=== PATIENT | female | born 1995 | race Caucasian/White ===

== ENCOUNTER 2023-01-05 14:26 | Inpatient (IN) | payer BC ==
[2023-01-05] MEDS ORDERED: hydrALAZINE 20 MG/ML VIAL SLOW IVP PRN (15:23)
[2023-01-05] MEDS ORDERED: Diphenoxylate HCl/Atropine Tablet PO PRN (15:23)
[2023-01-05] MEDS ORDERED: Carboprost 250 MCG/ML AMP IM PRN (15:23)
[2023-01-05] MEDS ORDERED: Docusate 100 MG CAP PO PRN (15:23)
[2023-01-05] MEDS ORDERED: Ondansetron PF 4 MG/2 ML Vial IVP PRN (15:23)
[2023-01-05] MEDS ORDERED: Butorphanol Tartrate 1 MG/ML VIAL SLOW IVP PRN (15:23)
[2023-01-05] MEDS ORDERED: fentaNYL 50 mcg/mL 1 mL Vial SLOW IVP PRN (15:23)
[2023-01-05] MEDS ORDERED: Acetaminophen 500 MG TAB PO PRN (15:23)
[2023-01-05] MEDS ORDERED: Methylergonovine 0.2 MG/ML VIAL IM PRN (15:23)
[2023-01-05] MEDS ORDERED: Tranexamic Acid 1,000 MG/10 ML VIAL IVP PRN (15:23)
[2023-01-05] MEDS ORDERED: Misoprostol 200 MCG TAB PR PRN (15:23)
[2023-01-05] MEDS ORDERED: Lidocaine 1% (PF) 30 ML VIAL SC PRN (15:23)
[2023-01-05] MEDS ORDERED: Promethazine HCl 25 MG/ML VIAL IM PRN (15:23)
[2023-01-05] MEDS ORDERED: Ibuprofen 800 MG TAB PO PRN (15:23)
[2023-01-05] MEDS ORDERED: Oxytocin 30 units/NS 500 ML 500 ML IV SCH ×3 (15:30)
[2023-01-05] MEDS ORDERED: Lactated Ringer's 1,000 ML IV SCH (15:30)
[2023-01-05] MEDS ORDERED: Misoprostol 100 MCG TAB VAG SCH ×2 (15:30)
[2023-01-05 15:36] LABS: Fetal Membranes Rupture RUPTURE DETECTED (No Rupture)
[2023-01-05] MEDS ORDERED: Lidocaine 1% (PF) 30 ML VIAL ONE (15:42)
[2023-01-05 16:33] LABS: Hematocrit 37.5 % (34.9-44.5); Hemoglobin 13.2 g/dL (12.0-15.5); Mean Corpuscular HGB CONC 35.2 g/dL (32.0-36.0); Mean Corpuscular Hemoglobin 33.9 pg (27.0-33.0); Mean Corpuscular Volume 96.4 fl (81.6-98.3); Mean Platelet Volume 11.1 fl (7.4-10.4); Platelet Count 406 10x3/uL (150-450); RBC Distribution Width 12.4 % (11.5-14.5); Red Blood Cell (RBC) Count 3.89 10x6/uL (3.90-5.03); White Blood Cell (WBC) Count 13.1 10x3/uL (3.5-10.5)
[2023-01-05 17:04] LABS: Syphilis Antibody Nonreactive (Nonreactive); Syphilis Antibody Index 0.05 S/CO (<1.00 Non-Reactive)
[2023-01-05 17:05] LABS: HBSAg Index 0.14 S/CO (0-0.99); Hep B Surf Ag - L&D Non-Reactive S/CO (NonReactive)
[2023-01-05 17:24] VITALS: BMI 26.6
[2023-01-05] MEDS ORDERED: Oxytocin 10 UNITS/ML VIAL ONE (22:53)
[2023-01-06 01:38] LABS: #Basophils 0.1 10x3/uL (0.0-0.2); #Eosinphils 0.1 10x3/uL (0.0-0.5); #Monocytes 0.8 10x3/uL (0.0-1.1); #Neutrophils 17.3 10x3/uL (1.5-8.4); %Basophils 0.4 % (0.0-2.0); %Eosinophils 0.4 % (0.0-6.0); %Lymphocytes 5.2 % (18.0-47.0); %Neutrophils 88.7 % (40.0-75.0); Hematocrit 32.7 % (34.9-44.5); Hemoglobin 11.6 g/dL (12.0-15.5); Mean Corpuscular HGB CONC 35.5 g/dL (32.0-36.0); Mean Corpuscular Hemoglobin 33.7 pg (27.0-33.0); Mean Corpuscular Volume 95.1 fl (81.6-98.3); Mean Platelet Volume 10.4 fl (7.4-10.4); Platelet Count 365 10x3/uL (150-450); RBC Distribution Width 12.1 % (11.5-14.5); Red Blood Cell (RBC) Count 3.44 10x6/uL (3.90-5.03); White Blood Cell (WBC) Count 19.5 10x3/uL (3.5-10.5)
[2023-01-06 02:14] LABS: D-Dimer Test 5.21 mg/L FEU (0.19-0.50); INR-International Normal Ratio 0.9; PTT 30.5 sec (22.0-33.0); Prothrombin Time 9.8 sec (9.5-12.1)
[2023-01-06] MEDS: Ibuprofen 800 MG TAB PO SCH ×3 (02:29→21:37)
[2023-01-06] MEDS ORDERED: Benzocaine-Menthol 82.5 ML CAN TOP PRN (03:09)
[2023-01-06] MEDS ORDERED: Milk Of Magnesia 30 ML UDCUP PO PRN (03:09)
[2023-01-06] MEDS ORDERED: Ondansetron PF 4 MG/2 ML Vial IVP PRN (03:09)
[2023-01-06] MEDS ORDERED: hydrALAZINE 20 MG/ML VIAL SLOW IVP PRN (03:09)
[2023-01-06] MEDS ORDERED: Misoprostol 200 MCG TAB VAG PRN (03:09)
[2023-01-06] MEDS ORDERED: Lanolin Ointment 7 GM TUBE TOP PRN (03:09)
[2023-01-06] MEDS ORDERED: Oxytocin 30 units/NS 500 ML 500 ML IV SCH (03:09)
[2023-01-06] MEDS ORDERED: Boostrix 0.5 ML (Tdap) VIAL (>/=7 yrs of age) IM ONE (03:09)
[2023-01-06] MEDS ORDERED: Bisacodyl 10 MG SUPP PR PRN (03:09)
[2023-01-06] MEDS ORDERED: HYDROcodone/Acetaminophen 5/325 mg Tablet PO PRN ×2 (03:09)
[2023-01-06 04:16] LABS: #Neutrophils 15.5 10x3/uL (1.5-8.4); %Basophils 0.2 % (0.0-2.0); %Eosinophils 0.1 % (0.0-6.0); %Lymphocytes 7.2 % (18.0-47.0); %Monocytes 10.2 % (0.0-10.0); %Neutrophils 80.8 % (40.0-75.0); Hematocrit 28.7 % (34.9-44.5); Hemoglobin 10.2 g/dL (12.0-15.5); Mean Corpuscular HGB CONC 35.5 g/dL (32.0-36.0); Mean Corpuscular Hemoglobin 34.2 pg (27.0-33.0); Mean Corpuscular Volume 96.3 fl (81.6-98.3); Mean Platelet Volume 10.7 fl (7.4-10.4); Platelet Count 316 10x3/uL (150-450); Red Blood Cell (RBC) Count 2.98 10x6/uL (3.90-5.03); White Blood Cell (WBC) Count 19.1 10x3/uL (3.5-10.5)
[2023-01-06] MEDS: Docusate 100 MG CAP PO SCH ×2 (09:33→21:37)
[2023-01-06] MEDS: Prenatal Vitamin 1 TAB PO SCH (09:33)
[2023-01-06] MEDS: Ferrous Sulfate 325 MG TAB PO SCH ×2 (09:34→18:49)
[2023-01-07] MEDS: Ibuprofen 800 MG TAB PO SCH ×3 (05:03→22:37)
[2023-01-07] MEDS: Ferrous Sulfate 325 MG TAB PO SCH ×2 (09:19→18:59)
[2023-01-07] MEDS: Docusate 100 MG CAP PO SCH ×2 (09:47→21:34)
[2023-01-07] MEDS: Prenatal Vitamin 1 TAB PO SCH (09:47)
[2023-01-07] MEDS: Clindamycin/D5W 900 MG in Premix 1 BAG IVPB SCH ×2 (14:30→22:36)
[2023-01-07] MEDS: Gentamicin 300 MG in Sodium Chloride 0.9% 100 ML IVPB SCH (15:22)
[2023-01-08] MEDS: Ibuprofen 800 MG TAB PO SCH ×2 (06:34→14:03)
[2023-01-08] MEDS: Clindamycin/D5W 900 MG in Premix 1 BAG IVPB SCH ×2 (06:35→14:01)
[2023-01-08 08:42] LABS: #Basophils 0.1 10x3/uL (0.0-0.2); #Eosinphils 0.6 10x3/uL (0.0-0.5); #Monocytes 1.7 10x3/uL (0.0-1.1); #Neutrophils 8.7 10x3/uL (1.5-8.4); %Basophils 0.7 % (0.0-2.0); %Eosinophils 4.3 % (0.0-6.0); %Lymphocytes 22.6 % (18.0-47.0); %Monocytes 11.3 % (0.0-10.0); %Neutrophils 59.1 % (40.0-75.0); Hematocrit 28.5 % (34.9-44.5); Hemoglobin 9.8 g/dL (12.0-15.5); Mean Corpuscular HGB CONC 34.4 g/dL (32.0-36.0); Mean Corpuscular Hemoglobin 33.7 pg (27.0-33.0); Mean Corpuscular Volume 97.9 fl (81.6-98.3); Platelet Count 395 10x3/uL (150-450); RBC Distribution Width 12.7 % (11.5-14.5); Red Blood Cell (RBC) Count 2.91 10x6/uL (3.90-5.03); White Blood Cell (WBC) Count 14.8 10x3/uL (3.5-10.5)
[2023-01-08] MEDS: Docusate 100 MG CAP PO SCH (08:54)
[2023-01-08] MEDS: Ferrous Sulfate 325 MG TAB PO SCH (08:54)
[2023-01-08] MEDS: Prenatal Vitamin 1 TAB PO SCH (08:54)
[2023-01-08] MEDS: Gentamicin 300 MG in Sodium Chloride 0.9% 100 ML IVPB SCH (14:52)
[2023-01-08 16:34] VITALS: BP 116/66; TEMP 98.4
== END 2023-01-08 17:15 | disposition home or self-care (01) | DRG 806 ==
LOC: CSHLD/OP 14:26 → CSHLD 16:10 → CSHPP 01-06 02:53
PROVIDERS: ADMIT Obstetrics & Gynecology; ATTEND Obstetrics & Gynecology
PROC: 10E0XZZ Delivery of Products of Conception, External Approach (ICD-10-PCS; principal; 2023-01-06)
PROC: 0UQMXZZ Repair Vulva, External Approach (ICD-10-PCS; 2023-01-06)
DX: O42.02 Full-term premature rupture of membranes, onset of labor within 24 hours of rupture (principal); O72.1 Other immediate postpartum hemorrhage; Z37.0 Single live birth; O86.12 Endometritis following delivery; Z3A.39 39 weeks gestation of pregnancy; O70.0 First degree perineal laceration during delivery
CPT/HCPCS: 36415; 84112; 85025; 85027; 85049; 85300; 85362; 85379; 85384; 85461; 85610; 85730; 86780; 86850; 86900; 86901; 87340; 87480; 87510; 87660; 90384; 96372; 99285; J1580; J2001; J2590; J3490